=== PATIENT | male | born 1960 | race Caucasian/White ===

== ENCOUNTER 2016-12-24 12:55 | Inpatient (IN) ==
[2016-12-24 14:43] LABS: BASO% 0.2 % (0.0-0.8); EOS# 0.12 X1000 (0.0-0.7); EOS% 0.8 % (0.0-10.0); HEMOGLOBIN 10.3 g/dL (14.0-18.0); IMM GRAN# 0.04 X1000 (0.0-0.04); IMM GRAN% 0.3 % (0.0-0.5); LYMPH% 23.6 % (20.5-51.1); MANUAL DIFF NEEDED? NO; MCH 25.2 PG (27-31); MCHC 31.2 g/dL (33-37); MCV 80.7 FL (81-99); MONO# 1.16 X1000 (0.11-0.59); MONO% 8.1 % (1.7-9.3); MPV 9.1 FL (7.4-10.4); PLT 294 X1000 (130-400); RBC 4.09 XMIL (4.7-6.1)
[2016-12-24 15:10] LABS: URINE CULTURE NEEDED? NO; URINE SOURCE CLEAN CATCH
[2016-12-24 15:14] LABS: ACETAMINOPHEN < 1.2 ug/mL (10-30); AGAP 14; ALBUMIN 3.2 g/dL (3.5-5.0); ALKALINE PHOSPHATASE 124 U/L (32-122); BUN 18 mg/dL (8-22); CALCIUM 9.3 mg/dL (8.8-10.2); CHLORIDE 92 mmol/L (98-107); COSMO 278; GOT 18 U/L (10-34); GPT 12 U/L (10-44); SODIUM 137 mmol/L (136-145); TCO2 31 mmol/L (25-35); TOTAL BILIRUBIN 0.17 mg/dL (0.20-1.00); TOTAL PROTEIN 7.9 g/dL (6.3-8.3)
[2016-12-24 15:27] LABS: FREE T4 1.44 ng/dL (0.93-1.70)
[2016-12-24 15:27] LABS: UR AMPHETAMINES QUAL PRESUMPTIVE POSITIVE (NONE DETECT); UR BARBITUATES QUAL NONE DETECTED (NONE DETECT); UR BENZODIAZEPIN QUAL PRESUMPTIVE POSITIVE (NONE DETECT); UR CANNABINOIDS QUAL PRESUMPTIVE POSITIVE (NONE DETECT); UR COCAINE QUAL PRESUMPTIVE POSITIVE (NONE DETECT); UR METHADONE QUAL NONE DETECTED (NONE DETECT); UR OPIATES QUAL NONE DETECTED (NONE DETECT); UR OXYCODONE QUAL NONE DETECTED (NONE DETECT); UR PCP QUAL NONE DETECTED (NONE DETECT)
[2016-12-24 15:29] LABS: URINE MICRO REVIEW NEEDED? YES
[2016-12-24 15:31] LABS: BILIRUBIN URINE SMALL (NEGATIVE); BLOOD URINE SMALL (NEGATIVE); COLOR YELLOW; GLUCOSE URINE NEGATIVE (NEGATIVE); LEUKOCYTES URINE NEGATIVE (NEGATIVE); NITRITE URINE NEGATIVE (NEGATIVE); PROTEIN URINE 100 mg/dL (NEGATIVE); SP GRAVITY URINE 1.033; TURBIDITY URINE CLEAR (CLEAR); UR EPITHELIAL CELLS <10 /HPF (<10); URINE BACTERIA NEGATIVE /HPF; URINE WBC <10 /HPF (<10); UROBILINOGEN URINE 6 mg/dL (NORMAL)
[2016-12-24 15:38] LABS: URINE CASTS GRANULAR PRESENT; URINE CRYSTALS NONE SEEN; URINE SMALL ROUND CELLS NONE SEEN
--- NOTE | 2016-12-24 16:08 | PROVIDER DOCUMENTATION ---
This chart was entered by Nani Marr Scribe, acting as scribe for Sumanth Jenkins MD. HPI-Psychological Disorder - General Source: patient - History of Present Illness-Psych Psychiatric Complaints: reports: anxiety, suicidal ideation <Sumanth Jenkins - Last Filed: 12/24/16 17:28> <Manjit Henderson - Last Filed: 12/24/16 18:42> - General Chief Complaint: Psych Stated Complaint: GENERAL Time Seen by Provider: 12/24/16 13:14 Allergies/Adverse Reactions: Patient Allergies Allergy/AdvReac Type Severity Reaction Status Date / Time No Known Allergies Allergy Verified 12/24/16 14:38 - History of Present Illness-Psych Nature of Presenting Problem: 56 yo M presents to the ER with complaint of SI, anxiety, and PTSD. Pt states he has a long hx of mental health issues. Was diagnosed with lung cancer a couple months ago. Pt states he wants to run his car in to a tree because "he' s dying anyway and that would be quicker". (Sumanth Jenkins) 56 yo M presents to the ER with complaint of SI, anxiety, and PTSD. Pt states he has a long hx of mental health issues. Was diagnosed with lung cancer a couple months ago. Pt states he wants to run his car in to a tree because "he' s dying anyway and that would be quicker". (Nani Marr) Review of Systems - Adult - REVIEW OF SYSTEMS - ADULT Constitutional: denies: chills, fever Eyes: reports: no symptoms reported Ears, Nose, Mouth & Throat: reports: no symptoms reported Cardiovascular: denies: chest pain, palpitations Respiratory: denies: cough, shortness of breath Gastrointestinal: denies: diarrhea, nausea, vomiting Genitourinary: reports: no symptoms reported Musculoskeletal: denies: joint pain, joint swelling Integumentary: reports: no symptoms reported Neurological: reports: no symptoms reported Psychiatric: reports: see HPI, anxiety, suicidal thoughts Endocrine: reports: no symptoms reported Hematologic/Lymphatic: reports: no symptoms reported Allergic/Immunologic: reports: no symptoms reported All Other Systems: Reviewed and Negative <Sumanth Jenkins - Last Filed: 12/24/16 17:28> - REVIEW OF SYSTEMS - ADULT Constitutional: reports: no symptoms reported <Manjit Henderson - Last Filed: 12/24/16 18:42> Past History - Adult - PAST MEDICAL HISTORY-ADULT Review of Records: reports: Nursing Assessment Review, Medications Reviewed - IMMUNIZATION STATUS Childhood Immunizations: See Nurse Assessment Flu Vaccine: See Nurse Assessment <Matthew Jenkinspaolo Ary - Last Filed: 12/24/16 17:28> - PAST MEDICAL HISTORY-ADULT Review of Records: reports: Medications Reviewed <Manjit Henderson - Last Filed: 12/24/16 18:42> Physical Exam-Psych Focus - Physical Exam-Psych Initial Vital Signs Reviewed: Yes Appearance: alert, anxious Neurological: alert, creel selector II-XII nml as tested, oriented x 3, anxious Behavior/Eye Contact/Speech: cooperative, normal speech Thoughts/Hallucinations: normal thought pattern, no apparent hallucination HENMT: normocephalic/atraumatic, normal ENT inspection, TMs normal, pharynx normal Neck: supple, normal inspection Respiratory: no respiratory distress, no accessory muscle use Cardiovascular: normal peripheral pulses, regular rate, rhythm Back Exam: no CVA tenderness, no vertebral tenderness Extremity: normal gait, normal inspection Integumentary: normal color, warm/dry <Matthew Jenkinspaolo X - Last Filed: 12/24/16 17:28> - Physical Exam-Psych Appearance: alert <Manjit Henderson - Last Filed: 12/24/16 18:42> Progress - PLAN OF CARE/RESULTS Result Diagrams: 12/24/16 14:22 12/24/16 14:15 - REASSESSMENT Reassessment #1 Time Reassessed: 16:07 Status: unchanged (Pt is stable and eating a meal.; CXR ordered.) - XRAY 1 XRAY Study: Chest Impression: Abnormal (COPD, probably L upper lobe central mass, atelectasis and/ or postobstructive pneumonia particularly in the L apex, per radiologist) - CHANGE OF SHIFT REPORT (ED Provider) Report Given and Care Transferred to:: Dr. Henderson Time of Transfer: 18:00 <JenkinsMatthewpaolo Mcallister - Last Filed: 12/24/16 17:28> - PLAN OF CARE/RESULTS Result Diagrams: 12/24/16 14:22 12/24/16 14:15 - REASSESSMENT Reassessment #2 Time Reassessed: 18:16 Status: unchanged Reassessment Comment: pt with hx of DVTs, has been out of lovenox for a week - CT/MRI 1 CT Study: Angiogram CT Results: Bilat PEs - CONSULTS/PCP/HOSPITALIST Notification #1 *Consult/PCP/Hospitalist*: Nadia Time Discussed: 18:20 Reason/Comments: Admit <Manjit Henderson - Last Filed: 12/24/16 18:42> - PLAN OF CARE/RESULTS Progress/Plan/Lab Results: Vital Signs - 8 hr 12/24/16 12:59 12/24/16 18:35 Temperature 97.6 F Pulse Rate 102 H 104 H Respiratory Rate 22 16 Blood Pressure 100/76 95/66 O2 Sat by Pulse Oximetry 99 98 Laboratory Results - last 24 hr 12/24/16 12/24/16 12/24/16 14:15 14:15 14:15 WBC RBC Hgb Hct MCV MCH MCHC RDW Std Deviation Plt Count MPV Immature Gran % (Auto) Neut % (Auto) Lymph % (Auto) [place] % (Auto) Eos % (Auto) Baso % (Auto) Immature Gran # (Auto) Neut # (Auto) Lymph # (Auto) [place] # (Auto) Eos # (Auto) Baso # (Auto) Sodium 137 Potassium 4.0 Chloride 92 L Carbon Dioxide 31 Anion Gap 14 BUN 18 Creatinine 0.7 Estimated GFR/1.73 m2 > 60 BUN/Creatinine Ratio 26 Glucose 138 H Calculated Osmolality 278 Calcium 9.3 Total Bilirubin 0.17 L AST 18 ALT 12 Alkaline Phosphatase 124 H Creatine Kinase Troponin T Total Protein 7.9 Albumin 3.2 L Globulin 4.7 Albumin/Globulin Ratio 0.7 Vitamin B12 > 2000 H TSH 1.50 Free T4 1.44 Urine Source Urine Color Urine Turbidity Urine pH Ur Specific [place] Urine Protein Ur Glucose (Stick) Ur Ketones (Stick) Urine Blood Urine Nitrite Urine Bilirubin Urobilinogen Dipstick Urine Leukocytes Urine WBC (Auto) Urine RBC (Auto) U Epithel Cells (Auto) Urine Bacteria (Auto) Urine Crystals Small Round Cells Urine Casts Urine Yeast-like Cells Salicylates < 3.00 L Urine Opiates Screen Ur Oxycodone Screen Ur Methadone, Qual Acetaminophen < 1.2 L Ur Barbiturates Screen Ur Phencyclidine Scrn Ur Amphetamines Screen U Benzodiazepines Scrn Urine Cocaine Screen U Cannabinoids Screen Plasma/Serum Ethyl Alc 12/24/16 12/24/16 12/24/16 14:15 14:22 15:05 WBC 14.40 H RBC 4.09 L Hgb 10.3 L Hct 33.0 L MCV 80.7 L MCH 25.2 L MCHC 31.2 L RDW Std Deviation 18.2 H Plt Count 294 MPV 9.1 Immature Gran % (Auto) 0.3 Neut % (Auto) 67.0 Lymph % (Auto) 23.6 [place] % (Auto) 8.1 Eos % (Auto) 0.8 Baso % (Auto) 0.2 Immature Gran # (Auto) 0.04 Neut # (Auto) 9.65 H Lymph # (Auto) 3.40 [place] # (Auto) 1.16 H Eos # (Auto) 0.12 Baso # (Auto) 0.03 Sodium Potassium Chloride Carbon Dioxide Anion Gap BUN Creatinine Estimated GFR/1.73 m2 BUN/Creatinine Ratio Glucose Calculated Osmolality Calcium Total Bilirubin AST ALT Alkaline Phosphatase Creatine Kinase Troponin T 0.015 Total Protein Albumin Globulin Albumin/Globulin Ratio Vitamin B12 TSH Free T4 Urine Source CLEAN CATCH Urine Color YELLOW Urine Turbidity CLEAR Urine pH 6.0 Ur Specific [place] 1.033 Urine Protein 100 A Ur Glucose (Stick) NEGATIVE Ur Ketones (Stick) TRACE A Urine Blood SMALL A Urine Nitrite NEGATIVE Urine Bilirubin SMALL A Urobilinogen Dipstick 6 A Urine Leukocytes NEGATIVE Urine WBC (Auto) <10 Urine RBC (Auto) 10-20 A U Epithel Cells (Auto) <10 Urine Bacteria (Auto) NEGATIVE Urine Crystals NONE SEEN Small Round Cells NONE SEEN Urine Casts GRANULAR PRESENT Urine Yeast-like Cells NONE SEEN Salicylates Urine Opiates Screen Ur Oxycodone Screen Ur Methadone, Qual Acetaminophen Ur Barbiturates Screen Ur Phencyclidine Scrn Ur Amphetamines Screen U Benzodiazepines Scrn Urine Cocaine Screen U Cannabinoids Screen Plasma/Serum Ethyl Alc 12/24/16 12/24/16 12/24/16 15:05 18:00 18:00 WBC RBC Hgb Hct MCV MCH MCHC RDW Std Deviation Plt Count MPV Immature Gran % (Auto) Neut % (Auto) Lymph % (Auto) [place] % (Auto) Eos % (Auto) Baso % (Auto) Immature Gran # (Auto) Neut # (Auto) Lymph # (Auto) [place] # (Auto) Eos # (Auto) Baso # (Auto) Sodium Potassium Chloride Carbon Dioxide Anion Gap BUN Creatinine Estimated GFR/1.73 m2 BUN/Creatinine Ratio Glucose Calculated Osmolality Calcium Total Bilirubin AST ALT Alkaline Phosphatase Creatine Kinase 90 Troponin T < 0.010 Total Protein Albumin Globulin Albumin/Globulin Ratio Vitamin B12 TSH Free T4 Urine Source Urine Color Urine Turbidity Urine pH Ur Specific [place] Urine Protein Ur Glucose (Stick) Ur Ketones (Stick) Urine Blood Urine Nitrite Urine Bilirubin Urobilinogen Dipstick Urine Leukocytes Urine WBC (Auto) Urine RBC (Auto) U Epithel Cells (Auto) Urine Bacteria (Auto) Urine Crystals Small Round Cells Urine Casts Urine Yeast-like Cells Salicylates Urine Opiates Screen NONE DETECTED Ur Oxycodone Screen NONE DETECTED Ur Methadone, Qual NONE DETECTED Acetaminophen Ur Barbiturates Screen NONE DETECTED Ur Phencyclidine Scrn NONE DETECTED Ur Amphetamines Screen PRESUMPTIVE POSITIVE A U Benzodiazepines Scrn PRESUMPTIVE POSITIVE A Urine Cocaine Screen PRESUMPTIVE POSITIVE A U Cannabinoids Screen PRESUMPTIVE POSITIVE A Plasma/Serum Ethyl Alc Orders Category Date Time Status Regular Diet Diet 12/24/16 13:07 Active ANGIOGRAM/PULMONARY ARTERIES [CT] Stat Exams 12/24/16 16:57 Completed CHEST-PORTABLE [RAD] Stat Exams 12/24/16 15:43 Completed ACETAMINOPHEN [TDM] Stat Lab 12/24/16 14:15 Completed ALCOHOL BLOOD Stat Lab 12/24/16 14:15 Completed CBC WITH ELECTRONIC DIFF [HEME] Stat Lab 12/24/16 14:22 Completed CK PROFILE [SP CHEM] Stat Lab 12/24/16 18:00 Completed COMPREHENSIVE METABOLIC PANEL [CHEM] Stat Lab 12/24/16 14:15 Completed FREE T4 Stat Lab 12/24/16 14:15 Completed SALICYLATES [TDM] Stat Lab 12/24/16 14:15 Completed TROPONIN T Stat Lab 12/24/16 14:15 Completed TROPONIN T Stat Lab 12/24/16 18:00 Completed TSH Stat Lab 12/24/16 14:15 Completed URINALYSIS W/POSS RFLX CULT-1 [URINALYSIS] Stat Lab 12/24/16 15:05 Completed URINE DRUG SCREEN Stat Lab 12/24/16 15:05 Completed URINE MANUAL MICROSCOPIC [URINALYSIS] Stat Lab 12/24/16 15:05 Completed VITAMIN B12 Stat Lab 12/24/16 14:15 Completed Heparin Med 12/24/16 18:13 Discontinued 5,100 unit IV NOW ONE Heparin 25,000 Units/D5w Med 12/24/16 18:15 Active 25,000 unit in 250 ml IV 7.348 mls/hr Hydrocodone/APAP 7.5 mg/325 mg [[place]-7.5] Med 12/24/16 18:00 Discontinued 1 each PO NOW ONE Departure <Sumanth Jenkins - Last Filed: 12/24/16 17:28> - Departure Date of Disposition Decision: 12/24/16 Time of Disposition Decision: 18:17 Certified Medical Emergency: Emergent - Critical Care Note This patient required my direct & personal management of CC.: No <Manjit Henderson - Last Filed: 12/24/16 18:42> - Departure DIAGNOSIS: Bilateral pulmonary embolism Disposition: ADMITTED INPATIENT 09 Condition: Fair Referrals and Follow-Ups: None,PCP [Primary Care Provider] - This chart was documented by the indicated scribe, (Nani Marr Scribe) and accurately reflects the services I performed and decisions made by me, Sumanth Jenkins MD, as attested by the provider's signature.
--- NOTE | 2016-12-24 16:58 | Diag Imaging Result Doc PS360 ---
EXAM: CHEST-PORTABLE HISTORY: Cough TECHNIQUE: AP portable upright at 1650 COMMENT: There is a mass arising adjacent to the AP window on the left with volume loss, atelectasis and possible postobstructive pneumonia.. There are no previous studies available for comparison. There is severe bullous emphysema particularly in the right upper lobe. There are old rib fractures on the right. There are severe degenerative changes in the shoulders particularly the left. The heart size and pulmonary vascularity are within normal limits. IMPRESSION: COPD. Probable left upper lobe central mass. Atelectasis and/or postobstructive pneumonitis particularly in the left apex. Electronically signed by John Owen 12/24/2016 4:56 PM
[2016-12-24] MEDS ORDERED: NORCO-7.5 PO ONE (18:00)
[2016-12-24] MEDS ORDERED: HEPARIN IV ONE (18:13)
--- NOTE | 2016-12-24 18:14 | Diag Imaging Result Doc PS360 ---
EXAM: ANGIOGRAM/PULMONARY ARTERIES HISTORY: CP with h/o lung cancer TECHNIQUE: Dose reduction technique COMPARISON: None. FINDINGS: There is a large left upper lobe mass measuring approximately 5.4 x 6.0 cm. There are enlarged left hilar and subcarinal lymph nodes. Bilateral filling defects in the pulmonary arteries. No thoracic aortic aneurysm or dissection. Severe emphysema. IMPRESSION: 1.Bilateral pulmonary emboli 2.Large left upper lobe mass with adenopathy 3.Severe emphysema 4.Dr. Jenkins was immediately called in the emergency room and given preliminary results 6:10 p.m. Electronically signed by Yonis Celis 12/24/2016 6:11 PM
[2016-12-24] MEDS ORDERED: HEPARIN 25,000 UNITS/D5W 25,000 UNIT/250 ML IV.SOLN IV SCH (18:15)
[2016-12-24] MEDS ORDERED: MORPHINE ONE (20:22)
[2016-12-24] MEDS: MORPHINE IV PRN (20:45)
[2016-12-24] MEDS ORDERED: TYLENOL PO PRN (21:00)
[2016-12-24] MEDS: SODIUM CHLORIDE 0.9% INJ SCH (21:50)
[2016-12-24] MEDS: PROTONIX IV SCH (21:51)
[2016-12-24] MEDS: NS 1,000 ML IV SCH (21:51)
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
[2016-12-24] MEDS: REMERON PO SCH (23:06)
[2016-12-24] MEDS: SEROQUEL PO SCH (23:06)
[2016-12-25] MEDS ORDERED: HEPARIN IV ONE ×4 (01:39→23:17)
[2016-12-25] MEDS ORDERED: HEPARIN 25,000 UNITS/D5W 25,000 UNIT/250 ML IV.SOLN IV SCH ×3 (01:39→16:37)
[2016-12-25] MEDS: MORPHINE IV PRN ×5 (05:44→21:25)
[2016-12-25 05:46] LABS: MANUAL DIFF NEEDED? NO
[2016-12-25 05:52] LABS: BASO% 0.2 % (0.0-0.8); EOS# 0.23 X1000 (0.0-0.7); EOS% 2.3 % (0.0-10.0); HEMATOCRIT 28.1 % (42.0-52.0); HEMOGLOBIN 8.7 g/dL (14.0-18.0); IMM GRAN# 0.02 X1000 (0.0-0.04); IMM GRAN% 0.2 % (0.0-0.5); LYMPH# 2.99 X1000 (1.2-3.4); LYMPH% 30.5 % (20.5-51.1); MCH 24.7 PG (27-31); MCV 79.8 FL (81-99); MONO# 0.81 X1000 (0.11-0.59); MONO% 8.3 % (1.7-9.3); NEUT% 58.5 % (42.2-75.2); PLT 224 X1000 (130-400); RBC 3.52 XMIL (4.7-6.1)
[2016-12-25 06:18] LABS: AGAP 13; BUN 10 mg/dL (8-22); CHLORIDE 97 mmol/L (98-107); COSMO 277; POTASSIUM 3.2 mmol/L (3.5-5.1); SODIUM 139 mmol/L (136-145); TCO2 29 mmol/L (25-35)
--- NOTE | 2016-12-25 09:39 | PROGRESS NOTE ---
DATE: 12/25/2016 SUBJECTIVE: Mr. Tabares is awake. He is feeling much better. He said the left side of his chest feels a little better and he is very hungry, eating all of his breakfast. OBJECTIVE: Vital Signs: Temp 99.5 degrees, pulse 104, respirations 22, blood pressure 114/44. HEENT: Pupils are equal, round. Lungs: Clear in all lung bourgeois. Cardiovascular: Regular rhythm and rate without murmur or S3. : Urine output over 2 L. LABORATORY DATA: Reviewed the labs from yesterday. Hematocrit was stable at 28 and again at 33. Then this morning, 28. Hemoglobin 8.7, so he did drop from yesterday. Sodium 139, potassium 3.2, chloride 97, BUN 10, creatinine 0.6. HISTORY: This is a 56-year-old, who presented yesterday with shortness of breath and suicidal ideation. Apparently presented emergency room with complaint of suicide ideation, anxiety, history of PTSD. States he has a long history of mental health issues. Treated in [facility], I believe. Technically hard to get out a medical history. He appears very anxious. Appears almost in a manic-type state. Yesterday, he did talk rapidly, just not about the questions he was asked. Most of his answers ended up being about war time problems and his mental health and states that over and over, he is basically messed up from head to toe related to these problems. He has complaints at this time other than pain throughout his body. He states there is no specific complaints. Just hurts all the time and is uncontrollable. He denied any suicidal thoughts at that time but did state earlier in the day that he felt like it was his best option. He had a recent blood clot in his left lower leg. He has a history of COPD chronic pulmonary embolism, left upper lobe lung cancer. Does have a history of tobacco and alcohol and polysubstance abuse. States he is on Lovenox shots but ran out of them a week ago. DIAGNOSTIC DATA: CTA was obtained in the emergency room that showed bilateral pulmonary embolism. Patient was admitted to the ICU. Reviewed his pulmonary angiogram and has bilateral pulmonary emboli. Large left upper lobe mass with adenopathy and severe emphysema. Reviewed again his lab. Aware of the blood count. ASSESSMENT AND PLAN: 1. Bilateral pulmonary embolism. Receiving Lovenox. Decide what to do for a long-term anticoagulant. It appears to be clinically stable. Actually he is presently on heparin, and so he will probably need to be on long-term anticoagulant. Discuss what. 2. Left upper lobe cancer. Dr. Wright consulted. He is getting morphine 2 mg IV q.3 hours as needed for pain. 3. Posttraumatic stress disorder. States he is on Remeron and Seroquel. 4. Gastroesophageal reflux. On Protonix 40 mg IV daily. 5. History of polysubstance abuse. Patient was positive for amphetamines and cocaine. Seems to be less agitated this morning. He is getting Ativan 1 mg q.4 hours. 6. Normocytic anemia. Actually may be ay be worth getting some iron studies and B12 and folate. cc: Irwin Gandara MD
[2016-12-25] MEDS: NS 1,000 ML IV SCH ×2 (12:17→22:49)
[2016-12-25] MEDS: PROTONIX IV SCH (21:25)
[2016-12-25] MEDS: SODIUM CHLORIDE 0.9% INJ SCH (21:25)
[2016-12-25] MEDS: SEROQUEL PO SCH (21:26)
[2016-12-25] MEDS: REMERON PO SCH (21:26)
[2016-12-26] MEDS: MORPHINE IV PRN ×6 (01:45→20:43)
[2016-12-26 04:05] LABS: MANUAL DIFF NEEDED? NO
[2016-12-26 04:11] LABS: BASO% 0.2 % (0.0-0.8); EOS# 0.27 X1000 (0.0-0.7); EOS% 2.8 % (0.0-10.0); HEMATOCRIT 28.6 % (42.0-52.0); HEMOGLOBIN 8.8 g/dL (14.0-18.0); IMM GRAN# 0.02 X1000 (0.0-0.04); IMM GRAN% 0.2 % (0.0-0.5); LYMPH# 2.63 X1000 (1.2-3.4); LYMPH% 27.4 % (20.5-51.1); MCH 25.2 PG (27-31); MCHC 30.8 g/dL (33-37); MCV 81.9 FL (81-99); MONO# 0.93 X1000 (0.11-0.59); MONO% 9.7 % (1.7-9.3); MPV 9.2 FL (7.4-10.4); NEUT% 59.7 % (42.2-75.2); PLT 232 X1000 (130-400); RBC 3.49 XMIL (4.7-6.1)
[2016-12-26 04:41] LABS: AGAP 14; ALBUMIN 2.4 g/dL (3.5-5.0); ALKALINE PHOSPHATASE 92 U/L (32-122); BUN 7 mg/dL (8-22); CALCIUM 8.1 mg/dL (8.8-10.2); CHLORIDE 98 mmol/L (98-107); COSMO 279; GOT 12 U/L (10-34); GPT 9 U/L (10-44); IRON SATURATION 7 %; MAGNESIUM 1.4 mg/dL (1.5-2.7); POTASSIUM 3.7 mmol/L (3.5-5.1); SODIUM 140 mmol/L (136-145); TCO2 28 mmol/L (25-35); TIBC 150 ug/dL; TOTAL BILIRUBIN 0.12 mg/dL (0.20-1.00); TOTAL IRON 10 ug/dL (53-167); TOTAL PROTEIN 6.3 g/dL (6.3-8.3); UNBOUND IRON 140 ug/dL (112-346)
[2016-12-26] MEDS ORDERED: HEPARIN IV ONE ×3 (04:52→17:55)
[2016-12-26] MEDS ORDERED: HEPARIN 25,000 UNITS/D5W 25,000 UNIT/250 ML IV.SOLN IV SCH (09:46)
[2016-12-26] MEDS: CYMBALTA PO SCH (10:50)
[2016-12-26] MEDS: HEPARIN 25,000 UNITS/D5W 25,000 UNIT/250 ML IV.SOLN IV SCH (11:45)
[2016-12-26] MEDS: NS 1,000 ML IV SCH (12:07)
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
[2016-12-26] MEDS: ZOFRAN IV PRN (18:26)
--- NOTE | 2016-12-26 19:29 | PROGRESS NOTE ---
DATE: 12/26/2016 SUBJECTIVE: He is awake and alert. He is watching TV. Breathing comfortably. I had about a 20- minute conversation with him. He is aware of this potential cancer in his left chest and he would like to know what the plan is. He is aware also that he has lost some weight. He is homeless, but he does have apparently [facility] benefits. OBJECTIVE: Vital signs: Afebrile, temperature 99 degrees, pulse 97, respirations 20, blood pressure 86/63. Lungs: Clear in all lung bourgeois. Cardiovascular: Regular rhythm and rate without murmur. Abdomen: Soft. Skin: Warm and dry. : Urine output over 4 L. LABORATORY: White count 9600, hematocrit 28, platelet count 233,000. Chemistry: Sodium 140, potassium 3.7, chloride 98, BUN 7, creatinine 0.6. ASSESSMENT AND PLAN: 1. Bilateral pulmonary embolism. Continue heparin drip. Decide what we are going to do for long- term anticoagulation. 2. 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 He is getting morphine for pain. See what the plan is for treatment. 3. Posttraumatic stress disorder. He is on Remeron and Seroquel and I may make some adjustments on this medication for him. 4. Gastroesophageal reflux disease. 1. Polysubstance abuse. He is positive for amphetamines and cocaine. PLAN: Try and increase his activity. Continue his current medication. He is on heparin drip. His PTT was 41. He is taking Seroquel 200 mg at bedtime, Protonix 40 mg q.24 hours. I may see if he would respond as well to a serotonin uptake inhibitor. We may try some Celexa to see if that helps. cc: Irwin Gandara MD
[2016-12-26] MEDS: SODIUM CHLORIDE 0.9% INJ SCH (20:42)
[2016-12-26] MEDS: PROTONIX IV SCH (20:42)
[2016-12-26] MEDS: REMERON PO SCH (20:43)
[2016-12-26] MEDS: SEROQUEL PO SCH (20:43)
[2016-12-27] MEDS: MORPHINE IV PRN ×7 (00:27→22:58)
[2016-12-27] MEDS: HEPARIN 25,000 UNITS/D5W 25,000 UNIT/250 ML IV.SOLN IV SCH (00:28)
[2016-12-27] MEDS: NS 1,000 ML IV SCH ×5 (00:30→22:58)
[2016-12-27] MEDS ORDERED: HEPARIN 25,000 UNITS/D5W 25,000 UNIT/250 ML IV.SOLN IV SCH ×2 (00:45→02:15)
[2016-12-27] MEDS: CYMBALTA PO SCH (08:30)
--- NOTE | 2016-12-27 09:08 | PROGRESS NOTE ---
DATE: 12/27/2016 SUBJECTIVE: Mr. Tabares is breathing better, feeling better. Eating well. ProTime 59 this morning. OBJECTIVE: Vital Signs: Temperature 98.0, pulse 97, respirations 24, blood pressure 112/63. HEENT: Pupils are equal, round. Lungs: Are clear. Cardiovascular: Exam regular in rhythm and rate without murmur or S3. Abdomen: Soft. Skin: Warm and dry. LABS: Urine output over 5 on 6 L. White count 9600, hematocrit 28, platelet count 232,000. Sodium 140, potassium 3.7, chloride 98, bicarb 28, BUN 7, creatinine 0.6. ASSESSMENT AND PLAN: 1. Bilateral pulmonary embolism, recent deep venous thrombosis. Continue heparin. Transitional oral coagulation. Social situation will make it difficult regarding chronic anticoagulation therapy. Needs to be followed closely by the [facility]. 2. Left upper lobe mass and mediastinal lymphadenopathy. He has biopsies and evaluation at the [facility], and will discuss plan of treatment against the coordinator with the [facility]. 3. Mental health issues. Posttraumatic stress disorder. 4. Substance abuse. 5. Post-traumatic stress disorder. 6. Nutrition. He is eating better. He has lost quite a bit of weight by his report. Review orders. I do not see any changes at this point. He is on Cymbalta 30 mg q.a.m., Ativan 1 mg IV q.4 hours p.r.n., Remeron 30 mg at bedtime, Protonix 40 mg IV q.24 hours. Seroquel 200 mg at bedtime. Still on heparin drip. I need to figure out what type of anticoagulation he will be eligible for, what would be the best route as an outpatient. cc: Irwin Gandara MD
[2016-12-27] MEDS: LOVENOX SUBQ SCH ×2 (09:50→22:54)
[2016-12-27] MEDS: ATIVAN IV PRN (20:02)
[2016-12-27] MEDS: REMERON PO SCH (22:54)
[2016-12-27] MEDS: SODIUM CHLORIDE 0.9% INJ SCH (22:54)
[2016-12-27] MEDS: SEROQUEL PO SCH (22:54)
[2016-12-27] MEDS: PROTONIX IV SCH (22:54)
[2016-12-28] MEDS: NS 1,000 ML IV SCH ×2 (07:54→17:37)
[2016-12-28] MEDS: CYMBALTA PO SCH (08:24)
[2016-12-28] MEDS: MORPHINE IV PRN ×4 (08:24→23:14)
[2016-12-28] MEDS: LOVENOX SUBQ SCH ×2 (08:25→20:40)
[2016-12-28] MEDS: ATIVAN IV PRN ×2 (10:25→20:44)
--- NOTE | 2016-12-28 11:15 | Diag Imaging Result Doc PS360 ---
EXAM: CT ABD/PELVIS W/ IV CONT ONLY HISTORY: lung mass; abd pain TECHNIQUE: CT of the abdomen with intravenous contrast and dose reduction (clarity.) COMMENT: There are no previous abdominal studies. There is subpleural effusion present on the left with a small fluid collection in the right. There is some atelectasis and fibrosis present in the lung bases. There is severe bullous emphysema in the lower portion of the upper lobes. This was also evident on the thoracic study of 12/24/2016. The pleural fluid collections were not previously present. There is a hiatal hernia. The aorta is not distended and the mesenteric and renal arteries are patent. There is an accessory right renal artery. The spleen is not enlarged. The adrenal glands are within normal limits. The liver is unremarkable in appearance. There is some motion artifact. The gallbladder is contracted. There is stool and gas in the colon. Small bowel is not distended. The kidneys are without evidence of hydronephrosis mass or stones. There is no evidence of significant adenopathy. CT of the pelvis with intravenous contrast: There is no evidence of appendicitis. There is a fairly large amount of stool in the rectosigmoid colon. There is no evidence of free fluid. There is no evidence of diverticulitis. There is gas in the subcutaneous fat over the anterior pelvis which may be due to subcutaneous injections. No acute bony abnormalities are present. IMPRESSION: Constipation. No evidence of acute intra-abdominal disease. Left pleural effusion. Nonacute findings as described above. Electronically signed by John Owen 12/28/2016 11:13 AM
--- NOTE | 2016-12-28 13:42 | PROGRESS NOTE ---
DATE: 12/28/2016 He was resting comfortably. Breathing comfortably. He has been eating well. Remains afebrile. Temp 98 degrees, pulse 92, respirations 13, blood pressure 98/60.HEENT: Pupils are equal, round. Lungs: Are clear in all lung bourgeois. Cardiovascular: Regular rhythm and rate without murmur or S3. Urine output was over 6 L almost 7 L. LAB: From reviewed. Had abdominal and pelvic CT done today. Shows some constipation. No evidence of acute intra- abdominal disease, left pleural effusion and no acute findings. ASSESSMENT AND PLAN: 1. Bilateral pulmonary embolism. Recent deep venous thrombosis. Continue heparin and convert him to oral anticoagulation when able. 2. Left upper lobe mass and mediastinal lymphadenopathy. Dr. Wright is following. He has had this lung mass about 4 months and evaluated at the [facility]. Undergone apparently 2 biopsies. Cannot remember the doctor's name. The person who did the biopsy was Dr. Messer. He has an appointment to follow up at the [facility]. I am not sure what the biopsies revealed. CT scan as noted was done this morning. 3. Home situation will be difficult, he is homeless, setting up a followup. 4. History of posttraumatic stress disorder. He is on Remeron and Seroquel. 5. Protein calorie malnutrition. Encourage p.o. intake. We did switch him from his heparin IV to Lovenox 60 mg subcu q.12. cc: Irwin Gandara MD
[2016-12-28] MEDS: PROTONIX PO SCH (20:40)
[2016-12-28] MEDS: REMERON PO SCH (20:40)
[2016-12-28] MEDS: SEROQUEL PO SCH (20:40)
[2016-12-28] MEDS: ZOFRAN IV PRN (23:14)
[2016-12-29] MEDS: NS 1,000 ML IV SCH ×2 (04:46→16:08)
[2016-12-29] MEDS: MORPHINE IV PRN ×5 (05:03→21:22)
[2016-12-29] MEDS: LOVENOX SUBQ SCH ×2 (08:31→20:21)
[2016-12-29] MEDS: CYMBALTA PO SCH (08:31)
[2016-12-29] MEDS: ATIVAN IV PRN ×2 (11:48→20:21)
--- NOTE | 2016-12-29 16:42 | PROGRESS NOTE ---
DATE: 12/29/2016 SUBJECTIVE: He is resting comfortably. He has been eating well. He was easy to arouse. Breathing comfortably. OBJECTIVE: Temperature 98.3 degrees, pulse 94, respirations 20, blood pressure 84/57. CVP less than 6 cm. Lungs are clear in all lung bourgeois. Cardiovascular: Regular rhythm and rate without murmur or S3. Urine output 3800 mL. LABORATORY: I reviewed labs from 12/26/2016. Hematocrit stable at 28, hemoglobin 8.8, electrolytes unremarkable. We did an abdominal and pelvic CT. Constipation. No evidence of intra-abdominal disease. Left pleural effusion. ASSESSMENT AND PLAN: 1. Bilateral pulmonary embolism. Recent deep venous thrombosis. Continue heparin. Transition to oral coagulation, social situation, mental health situation. We need to determine what we can do for followup. He does have a 's benefits apparently. 2. Left upper lobe mass and mediastinal lymphadenopathy. He has had biopsies and evaluation at the [facility]. I do not know the results of those. I think he has been told it is malignancy. 3. Mental health issues. 4. Substance abuse in the past. 5. History of posttraumatic stress disorder. 6. Protein calorie malnutrition. He is eating pretty well. It has improved. On review of his orders, I do not see anything to change at this point. He is on Seroquel 200 mg at bedtime. He is on Remeron 30 mg p.o. at bedtime, Cymbalta 30 mg q.a.m. Still getting fluids at 75 mL an hour. cc: Irwin Gandara MD
[2016-12-29] MEDS: SEROQUEL PO SCH (20:20)
[2016-12-29] MEDS: REMERON PO SCH (20:20)
[2016-12-29] MEDS: PROTONIX PO SCH (20:20)
[2016-12-30] MEDS: NS 1,000 ML IV SCH ×2 (06:12→18:14)
[2016-12-30] MEDS: MORPHINE IV PRN ×4 (07:56→23:04)
[2016-12-30] MEDS: LOVENOX SUBQ SCH ×2 (08:00→08:17)
[2016-12-30] MEDS: CYMBALTA PO SCH (08:00)
[2016-12-30] MEDS: ATIVAN IV PRN ×3 (13:57→23:03)
--- NOTE | 2016-12-30 17:05 | PROGRESS NOTE ---
DATE: 12/30/2016 SUBJECTIVE: This patient is resting comfortably in bed. He is breathing comfortably. He has been eating good. No fever, no chills. This patient is sleepy, but arousable. He is moving all 4 extremities. No focal deficits. OBJECTIVE: Vital Signs: Temperature 97.8 degrees, pulse 93, respiratory rate 22, blood pressure 109/67, O2 saturation 97% on room air. HEENT: Head normocephalic. No trauma. PERRLA. Neck: Supple. No JVD. No masses. Central trachea. Chest: Clear to auscultation. No wheezing. No rales. Abdomen: Soft, nontender, nondistended. No hepatosplenomegaly. Extremities: No edema. No clubbing. No cyanosis. Neurological: The patient is alert, oriented x3. No focal neurological deficits. The patient is sleepy, but arousable. He is answering my questions and he is moving all 4 extremities. LABORATORY: PTT 59.9, no lab work done today. ASSESSMENT AND PLAN: 1. Bilateral pulmonary edema. This patient was on Lovenox twice a day. I did transition to oral anticoagulation. I discussed with the social work coordinator about his social situation. He basically is homeless, but he does have a 's benefits apparently. 2. Left upper lobe mass and mediastinal lymphadenopathy. Dr. Wright from Oncology Department is following this patient. We will follow his recommendations. 3. Mental health issues. Apparently he has been having some kind of substance abuse before. Probably this is related with that, but he is answering my questions. 4. Substance abuse in the past. Aware. 5. History of posttraumatic stress disorder. Aware. We will continue with the same management. 6. Protein calorie malnutrition. He is eating pretty good. cc: Jake Fried MD
[2016-12-30] MEDS: XARELTO PO SCH (17:41)
[2016-12-30] MEDS: SEROQUEL PO SCH (21:40)
[2016-12-30] MEDS: PROTONIX PO SCH (21:40)
[2016-12-30] MEDS: REMERON PO SCH (21:40)
[2016-12-31] MEDS: MORPHINE IV PRN ×5 (05:02→22:17)
[2016-12-31 06:46] LABS: MANUAL DIFF NEEDED? NO
[2016-12-31 07:06] LABS: BASO% 0.2 % (0.0-0.8); EOS# 0.33 X1000 (0.0-0.7); EOS% 3.3 % (0.0-10.0); HEMATOCRIT 28.4 % (42.0-52.0); HEMOGLOBIN 8.8 g/dL (14.0-18.0); IMM GRAN# 0.03 X1000 (0.0-0.04); IMM GRAN% 0.3 % (0.0-0.5); LYMPH# 2.47 X1000 (1.2-3.4); LYMPH% 24.9 % (20.5-51.1); MCH 25.1 PG (27-31); MCV 80.9 FL (81-99); MONO# 1.35 X1000 (0.11-0.59); MONO% 13.6 % (1.7-9.3); MPV 9.3 FL (7.4-10.4); NEUT% 57.7 % (42.2-75.2); PLT 415 X1000 (130-400); RBC 3.51 XMIL (4.7-6.1)
[2016-12-31 07:14] LABS: AGAP 12; BUN 17 mg/dL (8-22); CALCIUM 9.7 mg/dL (8.8-10.2); CHLORIDE 94 mmol/L (98-107); COSMO 275; POTASSIUM 5.2 mmol/L (3.5-5.1); SODIUM 137 mmol/L (136-145); TCO2 31 mmol/L (25-35)
[2016-12-31] MEDS: CYMBALTA PO SCH (09:47)
[2016-12-31] MEDS: ATIVAN IV PRN ×3 (10:19→22:17)
[2016-12-31] MEDS: NS 1,000 ML IV SCH ×3 (14:59→16:30)
--- NOTE | 2016-12-31 16:10 | PROGRESS NOTE ---
DATE: 12/31/2016 SUBJECTIVE: This patient is resting comfortably on the bed. He is breathing comfortably. He has been eating good. No fever. No chills. Completely alert and oriented x3. He is moving all 4 extremities. No focal deficits. OBJECTIVE: Vital Signs: Temperature 98.3 degrees, pulse 93, respiratory rate 19, blood pressure 106/67, O2 saturation 98 on room air. HEENT: Head normocephalic. No trauma. PERRLA. Neck: Supple. No JVD. No masses. Central trachea. Chest: Clear to auscultation. Mild rhonchi at the level of the right upper lung. No wheezing. No rales. Abdomen: Soft, nontender, nondistended. No hepatosplenomegaly. Extremities: No edema. No clubbing. No cyanosis. Neurological: The patient is alert and oriented x3. No focal deficits. LABORATORY: WBC 9.9, hemoglobin 8.8, hematocrit 28.4, platelets 415,000. Sodium 137, potassium 5.2, chloride 94, bicarbonate 31, BUN 17, creatinine 0.6, glucose 100, calcium 9.7. ASSESSMENT AND PLAN: 1. Bilateral pulmonary embolism. I put this patient yesterday on oral anticoagulation. This patient is on Xarelto. I discussed with the social sciences professor about his social situation. Basically he is living in his car and has been like this for a few years. As per the patient, he felt comfortable like these. 2. Left upper lobe mass and mediastinal lymphadenopathy. He has been worked up at the [facility]. Dr. Wright from Oncology department is following this patient. We will continue with the same management for now. 3. Mental health issues. He looks pretty much stable at this moment. 4. Substance abuse in the past. Aware. We have a urine toxicology done that showed a presumptive positive result for amphetamine and benzodiazepine, cocaine and cannabinoids. He has been highly advised against drug abuse. We will continue with daily cessation education. 5. History of PTSD. Aware. 6. Protein calorie malnutrition. He is eating pretty good. Continue with the same management. cc: Jake Fried MD
[2016-12-31] MEDS: XARELTO PO SCH (16:47)
[2016-12-31] MEDS: SEROQUEL PO SCH (20:50)
[2016-12-31] MEDS: PROTONIX PO SCH (20:50)
[2016-12-31] MEDS: REMERON PO SCH (20:50)
[2017-01-01] MEDS: CYMBALTA PO SCH ×2 (07:56→13:37)
[2017-01-01] MEDS: ATIVAN IV PRN ×3 (07:56→17:52)
[2017-01-01] MEDS: MORPHINE IV PRN ×3 (07:56→17:52)
[2017-01-01] MEDS: NS 1,000 ML IV SCH (13:36)
--- NOTE | 2017-01-01 15:24 | PROGRESS NOTE ---
DATE: 01/01/2017 SUBJECTIVE: This patient is resting comfortably in bed. No shortness of breath. He has been eating good. No fever. No chills. He is completely alert and oriented x3. OBJECTIVE: Vital Signs: Temperature 99 degrees, pulse 91, blood pressure 110/63, oxygen saturation 93% on 2L nasal cannula. HEENT: Head normocephalic. No trauma. PERRLA. Neck: Supple. No JVD. No masses. Central trachea. Chest: Clear to auscultation. Mild rhonchi at the level of the right upper lung. No wheezing. No rales. Abdomen: Soft, nontender, nondistended. No hepatosplenomegaly. Extremities: No edema. No clubbing. No cyanosis. Neurological: The patient is alert and oriented x3. No focal deficits. LABORATORY: No lab work today. ASSESSMENT AND PLAN: 1. Bilateral pulmonary embolism. Continue with oral anticoagulation. I discussed this case with the psychologist social, about his social situation. We have been trying to send this patient to a rehab center. Will continue with the same treatment for now. 2. Left upper lobe mass and mediastinal lymphadenopathy. This has been worked up at the [facility]. Dr. Wright from Oncology Department is following this patient. We will continue with the same management for now. He should follow with the [facility] upon discharge. 3. Mental health issues. He looks pretty much stable at this moment. 4. Substance abuse in the past. Aware. We had a urine toxicology done at admission that showed presumptive positive result for amphetamine, benzodiazepine, cocaine, and cannabinoids. He has been highly advised against drug abuse. We will continue with cessation education. 5. History of posttraumatic stress disorder. Aware. 6. Protein calorie malnutrition. This patient eating good. Continue with the same management. cc: Jake Fried MD
[2017-01-01] MEDS: XARELTO PO SCH (17:52)
[2017-01-01] MEDS: PROTONIX PO SCH (20:20)
[2017-01-01] MEDS: REMERON PO SCH (20:20)
[2017-01-01] MEDS: SEROQUEL PO SCH (20:20)
[2017-01-02] MEDS: ZOFRAN IV PRN ×5 (02:15→20:41)
[2017-01-02] MEDS: MORPHINE IV PRN ×5 (02:17→20:41)
[2017-01-02] MEDS: ATIVAN IV PRN ×4 (02:18→20:41)
[2017-01-02] MEDS: NS 1,000 ML IV SCH ×4 (05:14→20:44)
[2017-01-02] MEDS: CYMBALTA PO SCH ×2 (07:55→17:00)
--- NOTE | 2017-01-02 14:24 | PROGRESS NOTE ---
DATE: 01/02/2017 SUBJECTIVE: This patient is resting comfortably in bed. No shortness of breath. He has been eating good. No fever, no chills. No acute events overnight. OBJECTIVE: Vital Signs: Temperature 97.8, pulse 82, respiratory rate 20, blood pressure 90/41. Oxygen saturation 94% on 2 L of nasal cannula. HEENT: Head normocephalic. No trauma. PERRLA. Neck: Supple. No JVD. No masses. Central trachea. Chest: Mild rhonchi at the level of the left upper lung, otherwise clear to auscultation. No wheezing. No rales. Abdomen: Soft, nontender, nondistended. No hepatosplenomegaly. Extremities: No edema. No clubbing. No cyanosis. Neurological: The patient is alert, oriented x3. No focal deficits. LABORATORY: No lab work today. ASSESSMENT AND PLAN: 1. Bilateral pulmonary embolism. Continue with oral anticoagulation and discussed this case with the social security specialist about his social situation. We are going to try to give him enough anticoagulation for 1 month and then he will need to continue with this treatment and the medicine probably will be provided by the [facility]. 2. Left upper lobe mass and mediastinal lymphadenopathy. These have been worked up at the [facility]. Dr. Wright from oncology department is following this patient. We will continue with the same management for now. He should follow with the [facility] upon discharge. 3. Mental health issues. He looks pretty much stable at this moment. He is answering all my questions properly. 4. Substance abuse in the past. Aware. We had a urine toxicology done upon admission that showed presumptive positive result for amphetamine, benzodiazepine, cocaine and cannabinoids. He has been highly advised against drug abuse. We will continue with daily cessation education. 5. History of post-traumatic stress disorder, aware. 6. Protein calorie malnutrition. This patient is eating good. Continue with the same management. cc: Jake Fried MD
[2017-01-02] MEDS: XARELTO PO SCH (16:59)
[2017-01-02] MEDS: SEROQUEL PO SCH (20:40)
[2017-01-02] MEDS: PROTONIX PO SCH (20:41)
[2017-01-02] MEDS: REMERON PO SCH (20:41)
[2017-01-03] MEDS: ZOFRAN IV PRN (04:08)
[2017-01-03] MEDS: NS 1,000 ML IV SCH (06:43)
[2017-01-03] MEDS: MORPHINE IV PRN ×3 (06:51→14:12)
[2017-01-03 06:58] LABS: MANUAL DIFF NEEDED? NO
[2017-01-03 07:08] LABS: BASO% 0.2 % (0.0-0.8); EOS# 0.24 X1000 (0.0-0.7); EOS% 2.2 % (0.0-10.0); HEMATOCRIT 29.3 % (42.0-52.0); IMM GRAN# 0.04 X1000 (0.0-0.04); IMM GRAN% 0.4 % (0.0-0.5); LYMPH# 2.74 X1000 (1.2-3.4); LYMPH% 25.1 % (20.5-51.1); MCH 25.2 PG (27-31); MCHC 30.7 g/dL (33-37); MCV 82.1 FL (81-99); MONO# 1.24 X1000 (0.11-0.59); MONO% 11.4 % (1.7-9.3); MPV 9.2 FL (7.4-10.4); NEUT% 60.7 % (42.2-75.2); PLT 408 X1000 (130-400); RBC 3.57 XMIL (4.7-6.1)
[2017-01-03 07:50] LABS: AGAP 13; BUN 19 mg/dL (8-22); CHLORIDE 98 mmol/L (98-107); COSMO 278; SODIUM 138 mmol/L (136-145); TCO2 27 mmol/L (25-35)
[2017-01-03 08:34] VITALS: BP 95/59
[2017-01-03] MEDS: ATIVAN IV PRN ×2 (09:34→14:12)
[2017-01-03] MEDS: CYMBALTA PO SCH (09:43)
[2017-01-03] MEDS ORDERED: NORCO-5 PO PRN (11:16)
--- NOTE | 2017-01-04 10:56 | DISCHARGE SUMMARY ---
ADMISSION DATE: 12/24/2016 DISCHARGE DATE: 01/03/2017 CONSULTATIONS: Dr. Wright with hematology/oncology. PERTINENT PROCEDURES: 1. Pulmonary arteriogram showed bilateral pulmonary emboli. Large left upper lobe mass with adenopathy. Severe emphysema. 2. Abdomen and pelvis CT showed constipation. No evidence of acute intra-abdominal disease. Left pleural effusion not acute. Findings as described in full report. DISCHARGE DIAGNOSES: 1. Bilateral pulmonary emboli. The patient will continue on oral anticoagulation. Discussed the case with the protective services social worker about his social situation, being homeless and living in a van. The patient was given a coupon for Xarelto which patient will then follow up with the [place]. He was given a coupon for 1 month worth of treatment, and then he will need to continue getting his treatment provided through the [facility] in [place]. Stable. 2. Left upper lobe mass and mediastinal lymphadenopathy. The patient has been worked up at the [facility] in [place]. We did consult Dr. Wright from oncology. He will follow up with the [facility] upon discharge. 3. Mental health issues. The patient is stable at the current moment. 4. Substance abuse. Patient's urine toxicology upon admission was positive for amphetamines, benzodiazepines, cocaine and cannabis. He was highly advised against drug abuse and abstinence, as well as daily cessation education. We also consulted social media assistant for rehabilitation placement. However, due to his substance abuse, we could not find a facility willing to take the patient. 5. Posttraumatic stress disorder history. Aware. 6. Protein calorie malnutrition. The patient has been eating well while in the hospital. Continue to encourage his regular diet with Ensure. HOSPITAL COURSE: Briefly, Mr. Tabares is a 56-year-old male, who carries a past medical history of longstanding mental health issues, suicidal ideation, anxiety, PTSD. He was recently treated in [place] by the [facility] for recent blood clot to his left lower leg and chronic pulmonary embolism with a left upper lobe cancer. Upon admission, the patient would just rapidly talk, but not about the questions that were asked. He would mainly end up talking about wartime problems, as well as his mental health issues. He also carries a history of tobacco, alcohol and polysubstance abuse. He [facility], but he ran out of them a week ago. CTA obtained in the ED was found to show bilateral pulmonary embolisms. He was started on a heparin drip and moved to the ICU on a heparin drip protocol. Dr. Wright was consulted in reference to his lung cancer. He was continued on his Remeron and Seroquel for his posttraumatic stress disorder. His urinalysis tested positive for amphetamines and cocaine, cannabis and benzodiazepine. DrKhadijah Wright continued with heparin and then transitioned to oral anticoagulation. [employer] was also consulted in reference to his mental health situation. They were able to get the patient 1 month of Xarelto. We also recommended rehabilitation, however due to his drug abuse history and testing positive on this admission, no nursing homes were willing to take the patient. He has been supplied with 1 month of Xarelto. He will also need to follow up with the [facility] in [place] to continue with his anticoagulation treatment, as well as his left upper lobe mass with mediastinal lymphadenopathy where he has already been worked up previously. Clinically the patient has improved. As far his suicidal ideations, he has not had any specific plans and denied any suicidal thoughts at the time of his admission. Clinically, the patient has improved. He has had no shortness of breath. He was moved out of the ICU to the regular floor. He has been eating well. He has had no acute events. He is appropriate for discharge home today. VITAL SIGNS: Temperature is 98.7, heart rate 91, respirations 18, blood pressure 95/59, O2 is 96% on room air. DISCHARGE DIET: Regular with Ensure. DISCHARGE MEDICATIONS: 1. Tylenol 650 mg p.o. q. 6 hours p.r.n. 2. Cymbalta 30 mg p.o. q.a.m. 3. [place] 5 one each p.o. q. 6 hours p.r.n. 4. Remeron 30 mg p.o. at bedtime. 5. Xarelto 20 mg p.o. with supper. FOLLOWUP: The patient is being discharged home with self care. He will need to follow up with his doctors at the [facility] in 1 week. He can return to the ED for any worsening of symptoms. He is to take all medications as prescribed. TIME SPENT: Discharged home 30 minutes. Dictated by JAQUELIN Hua for Jake Fried MD cc: Jake Fried MD
== END 2017-01-03 17:04 | disposition home or self-care (01) ==
LOC: ED 12:55 → ICU 20:55 → SUATTDRO 20:55 → ICU 21:26 → 3N 12-27 10:20
PROVIDERS: ATTEND Internal Medicine